=== PATIENT | female | born 1945 | race Two or more races ===

== ENCOUNTER → 2018-09-06 | Outpatient (CLI) | payer OTHER ==
[~2018-09-06] MED LIST: COZAAR25 MG; CYMBALTA60 MG PO; GRALISE300 MG PO; HYDROCHLOROTH12.5 M1 PO; LIPITOR20 MG; PREDNISOLO15 MG/5 ML; SYNTHROID50 MCG
== END | disposition home or self-care (01) ==
LOC: NUCLEAR 07:25
DX: K57.30 Diverticulosis of large intestine without perforation or abscess without bleeding (principal)
CPT/HCPCS: 78264; A9541

== ENCOUNTER 2018-11-16 14:00 | Emergency (ER) | payer OTHER ==
[~2018-11-16] VITALS: Ht 160 cm; Wt 78.9 kg
[2018-11-16] MEDS ORDERED: ZOLOFT100 MG (14:24)
[2018-11-16] MEDS ORDERED: [UNRECOGNIZED DRUG - REMARK] (14:25)
== END 2018-11-16 22:39 | disposition home or self-care (01) ==
LOC: ER 14:00
DX: J40 Bronchitis, not specified as acute or chronic (principal)

== ENCOUNTER 2019-07-18 16:31 | Outpatient (CLI) | payer OTHER | END 2019-07-18 16:33 | disposition home or self-care (01) | LOC: MRI 16:31 | DX: S83.282A Other tear of lateral meniscus, current injury, left knee, initial encounter (principal) | CPT/HCPCS: 73718 ==

== ENCOUNTER → 2019-07-18 | Emergency (ER) | payer OTHER ==
[~2019-07-18] VITALS: Ht 160 cm; Wt 77.1 kg
[~2019-07-18] MED LIST changes: +CHILDREN'S ASPI81 MG; +ZOLOFT100 MG; +[UNRECOGNIZED DRUG - REMARK]
== END | disposition left against medical advice (07) ==
LOC: ER 14:51
DX: Z53.20 Procedure and treatment not carried out because of patient's decision for unspecified reasons (principal)

== ENCOUNTER 2019-12-17 06:00 | Outpatient (CLI) | payer OTHER ==
[~2019-12-17] VITALS: Ht 160 cm; Wt 78.5 kg
[2019-12-17] MEDS ORDERED: COZAAR50 MG PO (08:14)
[2019-12-17] MEDS ORDERED: REGLAN PO (08:14)
[2019-12-17] MEDS ORDERED: GRALISE600 MG PO (08:15)
[2019-12-17] MEDS ORDERED: ATORVASTATIN CA20 MG PO (08:15)
[2019-12-17] MEDS ORDERED: MELATONIN5 M1 PO (08:15)
[2019-12-17] MEDS ORDERED: TYLENO PO (08:16)
[2019-12-17] MEDS ORDERED: VITAMIN C PO (08:17)
[2019-12-17] MEDS ORDERED: VITA PO (08:17)
== END 2019-12-17 06:01 | disposition home or self-care (01) ==
LOC: LAB 06:00 → RECOVERY 12-24 07:00 → EDSTATUS 12-24 07:00 → RECOVERY 12-24 07:15
PROVIDERS: ATTEND Orthopaedic Surgery
DX: M13.862 Other specified arthritis, left knee (principal); Z20.828 Contact with and (suspected) exposure to other viral communicable diseases; R07.89 Other chest pain; D68.8 Other specified coagulation defects; E78.2 Mixed hyperlipidemia; N39.0 Urinary tract infection, site not specified; Z01.810 Encounter for preprocedural cardiovascular examination; Z01.812 Encounter for preprocedural laboratory examination; Z01.811 Encounter for preprocedural respiratory examination

== ENCOUNTER 2021-12-14 08:05 | Outpatient (CLI) | payer OTHER ==
[~2021-12-14 08:05] MED LIST changes: +ATORVASTATIN CA20 MG PO; +COZAAR50 MG PO; +GRALISE600 MG PO; +MELATONIN5 M1 PO; +REGLAN PO; +TYLENO PO; +VITA PO; +VITAMIN C PO
== END 2021-12-14 08:14 | disposition home or self-care (01) ==
LOC: MRI 08:05
DX: M25.561 Pain in right knee (principal); M17.11 Unilateral primary osteoarthritis, right knee
CPT/HCPCS: 73718

== ENCOUNTER 2022-10-17 09:57 | Inpatient (IN) | payer OTHER ==
[~2022-10-17] VITALS: Ht 132.1 cm; Wt 64.4 kg
[~2022-10-17 09:57] MED LIST changes: +BUPROPION XL150 MG; +CYMBALT PO; +DULOXETINE HCL60 MG; +GABAPENTIN PO; +GABAPENTIN800 M1; +HYDROCHLOROTH12.5 MG PO; +OPTIMAL D31250 MCG; +REFRESH OPTIVE1 EAC2; +SERTRALINE HCL100 MG; +SYNTHROID88 MCG PO; +ZOLOFT PO
== END 2022-10-24 21:31 | disposition home or self-care (01) | DRG 440 ==
LOC: ER 09:57 → MEDI 18:47
PROVIDERS: ADMIT Internal Medicine; ATTEND Internal Medicine
PROC: BF37ZZZ Magnetic Resonance Imaging (MRI) of Pancreas (ICD-10-PCS; principal; 2022-10-17)
PROC: BW40ZZZ Ultrasonography of Abdomen (ICD-10-PCS; 2022-10-17)
PROC: BW21ZZZ Computerized Tomography (CT Scan) of Abdomen and Pelvis (ICD-10-PCS; 2022-10-17)
PROC: 4A12X4Z Monitoring of Cardiac Electrical Activity, External Approach (ICD-10-PCS; 2022-10-17)
DX: K85.10 Biliary acute pancreatitis without necrosis or infection (principal); K80.80 Other cholelithiasis without obstruction; E87.6 Hypokalemia; D72.829 Elevated white blood cell count, unspecified; R19.7 Diarrhea, unspecified; I10 Essential (primary) hypertension; E03.9 Hypothyroidism, unspecified; Z20.822 Contact with and (suspected) exposure to COVID-19

== ENCOUNTER 2022-11-21 05:36 | Day surgery (SDC) | payer OTHER ==
[~2022-11-21] VITALS: Ht 157.5 cm; Wt 78.9 kg
== END 2022-11-21 16:15 | disposition home or self-care (01) ==
LOC: CIR.AMB 05:36
PROVIDERS: ATTEND Surgery
DX: K80.10 Calculus of gallbladder with chronic cholecystitis without obstruction (principal); Z88.2 Allergy status to sulfonamides; Z88.0 Allergy status to penicillin; Z20.822 Contact with and (suspected) exposure to COVID-19